=== PATIENT | male | born 1980 | race Two or more races ===

== ENCOUNTER 2021-07-10 03:50 | Inpatient (IN) | payer SELFPAY ==
[2021-07-10] VITALS (8 sets, daily range): BP systolic 95–138; BP diastolic 55–96; PULSE 72–99; RESP 14–16; TEMP 36.6; O2SAT 95–98; BMI 31.3
--- NOTE | 2021-07-10 03:56 | ED.C_ITS ---
HPI - Psych General: Chief Complaint: Psychiatric Symptoms Stated Complaint: si Time Seen by Provider: 07/10/21 03:52 Source: patient Mode of arrival: ambulatory Limitations: no limitations History of Present Illness: 40-year-old male who states that he had been incarcerated for 4 years just got out of assisted yesterday states that he is homeless has no vertigo nor has he is walking the streets he started become depressed and states been having suicidal thoughts. He states he has no specific plans but is having severe depression denies any worsening improving factors denies any attempts. Associated symptoms: Reports depression and suicidal ideation Review of Systems Const: Denies: fever(s), chills, body aches or change in appetite Eyes: Denies: blurry vision or eye discomfort ENMT: Denies: throat pain or dental pain Card: Denies: chest pain Resp: Denies: dyspnea GI: Denies: abdominal pain, nausea, vomiting or diarrhea : Denies: dysuria Musc: Denies: neck pain or back pain Skin/Breast: Denies: rash Neuro: Denies: headache(s) Psych: Reports: depression and suicidal ideation Fercho/Lymph: Denies: easy bruising All/Imm: Denies: urticaria Physical Exam Const: COMMON NORMALS: no acute distress, patient oriented x3 and healthy appearing HENMT: COMMON NORMALS: normocephalic and atraumatic HEAD & SCALP: normocephalic and atraumatic Eye: COMMON NORMALS: Equal, round and reactive pupils present and EOMs intact bilaterally PUPIL: Yes Equal, round and reactive pupils present Neck/C-Spine: COMMON NORMALS: full ROM and supple Chest: COMMONS NORMALS: normal inspection of the chest and normal palpation of entire chest wall Resp: COMMON NORMALS: normal respiratory effort, No retractions, No use of accessory muscles and clear to auscultation bilaterally AUSCULTATION: clear t o auscultation bilaterally Cardio: COMMON NORMALS: regular rate, regular rhythm and No murmurs present (Cardio) RATE: regular rate RHYTHM: regular rhythm GI: COMMON NORMALS: Normal to inspection, nondistended, normoactive bowel sounds present, Soft to palpation, non-tender and no masses PALPATION: Yes Soft to palpation Extremity: COMMON NORMALS: normal to inspection and full ROM Neuro: COMMON NORMALS: patient oriented x3, moves all extremities and no focal motor deficits Psych: COMMON NORMALS: mental status grossly normal, Normal thought process present and cooperative THOUGHT PROCESS: Normal thought process present THOUGHT CONTENT: Yes Suicidality present Skin: COMMON NORMALS: no rashes or lesions noted and no wounds GENERAL SKIN EXAM: no rashes or lesions noted Course Vital Signs: Vital signs: Vital Signs Temperature 97.9 F 07/10/21 04:07 Pulse Rate 86 07/10/21 04:07 Respiratory Rate 16 07/10/21 04:07 Blood Pressure 138/96 07/10/21 04:07 Pulse Oximetry 98 07/10/21 04:07 MDM - Psych Medical Decision Making Patient presents here with suicidal ideations he is voluntarily wanting to be admitted he is well-appearing here medically cleared I spoke to psychiatrist will admit. Lab Data : 07/10/21 04:28 07/10/21 04:28 Laboratory Results WBC 8.7 10^3/uL (4.0-10.0) 07/10/21 04:28 RBC 5.16 10^6/uL (4.1-5.3) 07/10/21 04:28 Hgb 16.6 g/dL (11.7-16.6) 07/10/21 04:28 Hct 48.4 % (42.0-52.0) 07/10/21 04:28 MCV 93.8 fl (80-94) 07/10/21 04:28 MCH 32.2 pg (28.0-34.0) 07/10/21 04:28 MCHC 34.3 g/dL (30.0-36.0) 07/10/21 04:28 RDW 11.7 % (12.1-15.1) L 07/10/21 04:28 Plt Count 278 10^3/cmm (130-400) 07/10/21 04:28 MPV 11.2 fL (7.4-10.4) H 07/10/21 04:28 Neut % (Auto) 44.8 % 07/10/21 04:28 Lymph % (Auto) 47.3 % 07/10/21 04:28 Kay % (Auto) 5.7 % 07/10/21 04:28 Eos % (Auto) 1.2 % 07/10/21 04:28 Baso % (Auto) 0.9 % 07/10/21 04:28 Neut # (Auto) 3.89 10^3/uL (1.8-7.7) 07/10/21 04:28 Lymph # (Auto) 4.1 10^3/uL (0.8-4.8) 07/10/21 04:28 Kay # (Auto) 0.5 10^3/uL (0.2-0.9) 07/10/21 04:28 Eos # (Auto) 0.1 10^3/uL (0.0-0.8) 07/10/21 04:28 Baso # (Auto) 0.1 10^3/uL (0.0-0.1) 07/10/21 04:28 Nucleated RBC % (auto) 0 % 07/10/21 04:28 Nucleated RBCs # 0.0 /100WBC 07/10/21 04:28 Sodium 146 mmol/L (136-145) H 07/10/21 04:28 Potassium 4.8 mmol/L (3.5-5.1) 07/10/21 04:28 Chloride 106 mmol/L (98-107) 07/10/21 04:28 Carbon Dioxide 27 mmol/L (22-29) 07/10/21 04:28 Anion Gap 17.8 (5-19) 07/10/21 04:28 BUN 5 mg/dL (6-20) L 07/10/21 04:28 Creatinine 0.8 mg/dL (0.7-1.2) 07/10/21 04:28 GFR Calculation 108.2 mL/min (90-130) 07/10/21 04:28 Glucose 92 mg/dL (65-115) 07/10/21 04:28 Calculated Osmolality 299 mOsm/kg (285-295) H 07/10/21 04:28 Calcium 8.7 mg/dL (8.5-10.5) 07/10/21 04:28 Total Bilirubin 0.3 mg/dL (0.15-1.2) 07/10/21 04:28 AST 51 U/L (0-40) H 07/10/21 04:28 ALT 71 U/L (0-41) H 07/10/21 04:28 Alkaline Phosphatase 59 IU/L (40-130) 07/10/21 04:28 Total Protein 7.7 g/dL (6.6-8.7) 07/10/21 04:28 Albumin 4.7 g/dL (3.5-5.2) 07/10/21 04:28 Globulin 3.0 g/dL (1.3-4.6) 07/10/21 04:28 Salicylates 1.0 mg/dL (3-10) L 07/10/21 04:28 Urine Opiates Screen Negative ng/mL (Negative) 07/10/21 04:02 Acetaminophen < 5.0 ug/mL (10-30) L 07/10/21 04:28 Ur Barbiturates Screen Negative ng/mL (Negative) 07/10/21 04:02 Ur Phencyclidine Scrn Negative ng/mL (Negative) 07/10/21 04:02 Ur Amphetamines Screen Negative ng/mL (Negative) 07/10/21 04:02 U Benzodiazepines Scrn Negative ng/mL (Negative) 07/10/21 04:02 Urine Cocaine Screen Negative ng/mL (Negative) 07/10/21 04:02 U Marijuana (THC) Screen Negative ng/mL (Negative) 07/10/21 04:02 Ethyl Alcohol 176 mg/dL (0-10) H 07/10/21 04:28 Discharge Plan Discharge Condition: Stable Prescriptions: No Action No Known Home Medications 0RF Referrals: Aubrie Richards DO [Referring] - Coding Level of Care Code ED Newsstand Vendor for [place] Fwd Exam Comprehensive
[2021-07-10 04:37] LABS: Amphetamines Screen Urine Negative (Negative); Barbiturates Screen Urine Negative (Negative); Benzodiazepines Screen Urine Negative (Negative); Cocaine Screen Urine Negative (Negative); Opiate Screen Urine Negative (Negative); PCP Screen Urine Negative (Negative); THC Screen Urine Negative (Negative)
[2021-07-10 04:44] LABS: Basophils # 0.1 10^3/uL (0.0-0.1); Basophils % 0.9 %; Eosinophils # 0.1 10^3/uL (0.0-0.8); Eosinophils % 1.2 %; Hematocrit 48.4 % (42.0-52.0); Hemoglobin 16.6 g/dL (11.7-16.6); Lymphocytes # 4.1 10^3/uL (0.8-4.8); Lymphocytes % 47.3 %; Mean Corpuscular HGB Conc 34.3 g/dL (30.0-36.0); Mean Corpuscular Hemoglobin 32.2 pg (28.0-34.0); Mean Corpuscular Volume 93.8 fl (80-94); Mean Platelet Volume 11.2 fL (7.4-10.4); Monocytes # 0.5 10^3/uL (0.2-0.9); Monocytes % 5.7 %; Neutrophils # 3.89 10^3/uL (1.8-7.7); Neutrophils % 44.8 %; Nucleated Red Blood Cells % 0 %; Platelet Count 278 10^3/cmm (130-400); Red Blood Count 5.16 10^6/uL (4.1-5.3); Red Cell Distribution Width 11.7 % (12.1-15.1); White Blood Count 8.7 10^3/uL (4.0-10.0)
[2021-07-10 05:12] LABS: Alanine Aminotransferase 71 U/L (0-41); Albumin Level 4.7 g/dL (3.5-5.2); Alcohol Level 176 mg/dL (0-10); Alkaline Phosphatase 59 IU/L (40-130); Anion Gap 17.8 (5-19); Aspartate Amino Transferase 51 U/L (0-40); Blood Urea Nitrogen 5 mg/dL (6-20); Calcium 8.7 mg/dL (8.5-10.5); Carbon Dioxide 27 mmol/L (22-29); Chloride 106 mmol/L (98-107); Glomerular Filtration Rate 108.2 mL/min (90-130); Glucose 92 mg/dL (65-115); Osmolality Calculated 299 mOsm/kg (285-295); Potassium 4.8 mmol/L (3.5-5.1); Sodium 146 mmol/L (136-145); Total Bilirubin 0.3 mg/dL (0.15-1.2); Total Protein 7.7 g/dL (6.6-8.7)
[2021-07-10 05:15] LABS: Acetaminophen < 5.0 ug/mL (10-30)
[2021-07-10] MEDS: LORazepam 2 mg/mL INJ 1 mL IM (09:10)
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
[2021-07-10] MEDS: hyDROXYzine 25 mg Capsule 50 MG PO (15:33)
[2021-07-10] MEDS: ARIPiprazole 10 mg Tablet PO (15:53)
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
[2021-07-11 06:00] VITALS: BP 109/63; PULSE 78; RESP 16; TEMP 36.6; O2SAT 96
[2021-07-11] MEDS: folic acid 1 mg Tablet PO (10:03)
[2021-07-11] MEDS: multivitamin therapeutic Tablet 1 TAB PO (10:03)
[2021-07-11] MEDS: ARIPiprazole 10 mg Tablet PO (10:03)
[2021-07-11] MEDS: thiamine 100 mg Tablet PO (10:04)
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
[2021-07-11 14:00] VITALS: BP 109/63; PULSE 78; RESP 16; TEMP 36.6; O2SAT 96
[2021-07-11] MEDS: nicotine 2 mg Gum BUCCAL (14:18)
[2021-07-11 21:20] VITALS: BP 136/78; PULSE 78; RESP 16; TEMP 36.6; O2SAT 99
[2021-07-12 05:57] VITALS: BP 103/64; PULSE 78; RESP 16; O2SAT 96
[2021-07-12 06:00] VITALS: BMI 31.3
[2021-07-12] MEDS: ARIPiprazole 10 mg Tablet PO (09:07)
[2021-07-12] MEDS: quetiapine 25 mg Tablet PO ×2 (09:08→18:42)
[2021-07-12] MEDS: folic acid 1 mg Tablet PO (09:08)
[2021-07-12] MEDS: thiamine 100 mg Tablet PO (09:08)
[2021-07-12] MEDS: multivitamin therapeutic Tablet 1 TAB PO (09:08)
[2021-07-12] MEDS: BuSPIRONE 10 mg Tablet 15 MG PO ×2 (09:08→18:42)
[2021-07-12] MEDS: nicotine 2 mg Gum BUCCAL ×3 (09:49→15:35)
[2021-07-12 14:00] VITALS: BP 103/64; PULSE 78; RESP 16; TEMP 36.6; O2SAT 96
--- NOTE | 2021-07-12 14:58 | W.PM.NPUPNS ---
Subjective NPU Subjective: Interval history: Patient presents today reporting that he is doing fine. He reports he tolerated the initiation of the BuSpar and the Seroquel as well as the Abilify. The question is that something he feels makes him sleepy and is not sure if he wants to take it. We agreed we would discuss that medication once we identify which one it was. He reports that he is optimistic about getting things back on track now as far as programming in [place]. We agreed we would work with the treatment team on Tuesday to make sure that we had arrangements and likely consider discharge in the next 48 hours. Mental Status Exam MSE Comments: This is an overweight, well-developed male with significant tattooing on his arms and exposed skin. No abnormal movements except for mild psychomotor retardation. Cooperative with exam in no acute distress. Speech was more normal rate and volume. Patients mood described as a little better', affect is congruent. Thought process is organized. Thought content: patient denies any suicidal or homicidal ideation, no delusions reported or noted, and denies any auditory or visual hallucinations. Attention, concentration and memory are intact and reliable but were not formally tested. He is alert and oriented three times.? Insight and judgement appear fair. Impulse control appears limited. Vitals/I&O/Wt Last Vital Signs Temp 97.8 F 07/12/21 14:00 Pulse 78 07/12/21 14:00 Resp 16 07/12/21 14:00 BP 103/64 07/12/21 14:00 Pulse Ox 96 07/12/21 14:00 Weight last 48 hrs Weight 90.718 kg Data NPU : 07/10/21 04:28 07/10/21 04:28 A&P Assessment and plan (1) Cannabis abuse: Status: Acute (2) Adjustment disorder with mixed disturbance of emotions and conduct: Status: Acute (3) Anxiety disorder: Status: Acute (4) PTSD (post-traumatic stress disorder): Status: Acute Plan This is a 40 year old male with a long history of trauma and addiction and anxiety who presents reporting he is open to getting his medication restarted and wants to do some recovery oriented treatment to ensure he has some success with his reentry into the community. 1. Continue all current medication except start Buspar 15mg po bid. Seroquel 25mg po bid, Prazosin 1mg po qhs 2. Encourage individual, group and milieu therapy 3. Continue q-15 minute check for safety 4. Recommend sober living treatment at the highest level of care to which the patient is willing to commit.? Involuntary Hold Information 96 Hour Hold: 96 Hour Involuntary Admission: No Attestations NPU Medical Necessity Statement*: Inpatient hospitalization is medically necessary and the clinically appropriate intervention at this time. We will monitor medications and make changes as indicated. Likely length of stay is 2-4 days. Coding Level of Care Code Acute Automatic Trimming Sewer for [facility] Fwd Diagnoses Cannabis abuse F12.10 Adjustment disorder with mixed disturbance of emotions and conduct F43.25 Anxiety disorder F41.9 PTSD (post-traumatic stress disorder) F43.10
[2021-07-12 21:22] VITALS: BP 124/90; PULSE 77; RESP 16; TEMP 36.7; O2SAT 99
[2021-07-12] MEDS: prazosin 1 mg Capsule PO (21:23)
[2021-07-13 05:55] VITALS: BP 94/67; PULSE 81; RESP 20; TEMP 36.6; O2SAT 96
[2021-07-13] MEDS: nicotine 2 mg Gum BUCCAL ×3 (05:58→18:39)
[2021-07-13] MEDS: BuSPIRONE 10 mg Tablet 15 MG PO ×2 (09:17→17:40)
[2021-07-13] MEDS: folic acid 1 mg Tablet PO (09:17)
[2021-07-13] MEDS: thiamine 100 mg Tablet PO (09:17)
[2021-07-13] MEDS: ARIPiprazole 10 mg Tablet PO (09:17)
[2021-07-13] MEDS: multivitamin therapeutic Tablet 1 TAB PO (09:17)
[2021-07-13] MEDS: quetiapine 25 mg Tablet PO ×2 (09:17→17:40)
--- NOTE | 2021-07-13 12:10 | NPU.GN ---
[facility] Unit Group Topic:Whine [place]rel Group Activity General Mood of Group: Paulo did attend group today. He participated . Hygiene was ok .
--- NOTE | 2021-07-13 13:41 | PC.NURSE ---
PRN Patient utilizing PRN nicotine gum for nicotine cravings.
[2021-07-13 14:00] VITALS: BP 146/82; PULSE 78; RESP 17; TEMP 36.7; O2SAT 97
--- NOTE | 2021-07-13 19:12 | P.NPUPN_ITS ---
Subjective NPU Subjective: Interval history: Patient presents today reporting that he is worried that his p.o. is not going to know that he is here. He reports that he feels getting himself back on track with the program at [facility] would go a long way to get him back on his feet and reacclimated society. Otherwise he reports that he feels the medication has been helpful and endorses eating and sleeping fine. Medications: Medication Review Details: This is an overweight, well-developed -Chinese male with significant tattooing on his arms and exposed skin. No abnormal movements except for mild ps ychomotor retardation. Cooperative with exam in no acute distress. Speech was more normal rate and volume. Patients mood described as better, affect is congruent. Thought process is organized. Thought content: patient denies any suicidal or homicidal ideation, no delusions reported or noted, and denies any auditory or visual hallucinations. Attention, concentration and memory are intact and reliable but were not formally tested. He is alert and oriented three times.? Insight and judgement appear fair. Impulse control appears limited, but improving. Vitals/I&O/Wt Last Vital Signs Temp 98.0 F 07/13/21 14:00 Pulse 78 07/13/21 14:00 Resp 17 07/13/21 14:00 BP 146/82 07/13/21 14:00 Pulse Ox 97 07/13/21 14:00 Weight last 48 hrs Weight 90.718 kg Data NPU : 07/10/21 04:28 07/10/21 04:28 A&P Assessment and plan (1) Cannabis abuse: Status: Acute (2) Adjustment disorder with mixed disturbance of emotions and conduct: Status: Acute (3) Anxiety disorder: Status: Acute (4) PTSD (post-traumatic stress disorder): Status: Acute Plan This is a 40 year old This is a 40 year old male with a long history of trauma and addiction and anxiety who presents reporting he is open to getting his medication restarted and wants to do some recovery oriented treatment to ensure he has some success with his reentry into the community. 1. Continue all current medication. 2. Encourage individual, group and milieu therapy 3. Continue q-15 minute check for safety 4. Recommend sober living treatment at the highest level of care to which the patient is willing to commit. Involuntary Hold Information 96 Hour Hold: 96 Hour Involuntary Admission: No Attestations NPU Medical Necessity Statement*: Inpatient hospitalization is medically necessary and the clinically appropriate intervention at this time. We will monitor medications and make changes as indicated.? Likely length of stay is 1-3 days. Coding Level of Care Code Acute Assistant To The President for [facility] Fwd Diagnoses Cannabis abuse F12.10 Adjustment disorder with mixed disturbance of emotions and conduct F43.25 Anxiety disorder F41.9 PTSD (post-traumatic stress disorder) F43.10
[2021-07-13] MEDS: prazosin 1 mg Capsule PO (20:49)
[2021-07-13 21:57] VITALS: BP 124/81; PULSE 70; RESP 18; O2SAT 96
[2021-07-14 06:00] VITALS: BP 90/54; PULSE 56; RESP 17; TEMP 36.3; O2SAT 97
[2021-07-14] MEDS: nicotine 2 mg Gum BUCCAL ×2 (06:15→11:04)
[2021-07-14] MEDS: thiamine 100 mg Tablet PO (09:05)
[2021-07-14] MEDS: multivitamin therapeutic Tablet 1 TAB PO (09:05)
[2021-07-14] MEDS: BuSPIRONE 10 mg Tablet 15 MG PO (09:05)
[2021-07-14] MEDS: ARIPiprazole 10 mg Tablet PO (09:05)
[2021-07-14] MEDS: quetiapine 25 mg Tablet PO (09:05)
[2021-07-14] MEDS: blistex lip oint 7 gm Tube 1 APPLIC TOPICAL (09:07)
[2021-07-14] MEDS: folic acid 1 mg Tablet PO (09:07)
--- NOTE | 2021-07-14 13:00 | NPU.GN ---
[facility] NeuroPsych Unit Group Topic: Triggers, Coping Skills, Crisis Intervention Plan General Mood of Group: Paulo did not attend group this morning.
[2021-07-14 13:30] VITALS: BP 124/88; PULSE 76; RESP 17; TEMP 36.6; O2SAT 96
[2021-07-14 15:41] VITALS: BP 124/88; PULSE 76; RESP 17; TEMP 36.6; O2SAT 96
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
== END 2021-07-14 16:24 | disposition home or self-care (01) | DRG 882 ==
LOC: ER 11:49 → NP 15:28
PROVIDERS: Admitting Provider Psychiatry & Neurology Psychiatry; Emergency Provider Emergency Medicine; Visit Provider Psychiatry & Neurology Psychiatry
DX: F43.10 Post-traumatic stress disorder, unspecified (principal); R45.851 Suicidal ideations; F43.25 Adjustment disorder with mixed disturbance of emotions and conduct; F41.9 Anxiety disorder, unspecified; F12.10 Cannabis abuse, uncomplicated; Z59.00 Homelessness unspecified; Z65.2 Problems related to release from prison
CPT/HCPCS: 80053; 80306; 80307; 85025; 90471; 90686; 96372; 97150; 97165; 99285; J2060; J3411